=== PATIENT | male | born 1980 | race Caucasian/White ===

== ENCOUNTER 2021-12-20 11:02 | Day surgery (SDC) | payer BC | END 2021-12-20 13:15 | disposition home or self-care (01) | LOC: FASU-ENDO 11:02 | PROVIDERS: ATTEND Internal Medicine Gastroenterology | PROC: 0DB68ZX Excision of Stomach, Via Natural or Artificial Opening Endoscopic, Diagnostic (ICD-10-PCS; 2021-12-20) | PROC: 0DB48ZX Excision of Esophagogastric Junction, Via Natural or Artificial Opening Endoscopic, Diagnostic (ICD-10-PCS; 2021-12-20) | PROC: 0DB98ZX Excision of Duodenum, Via Natural or Artificial Opening Endoscopic, Diagnostic (ICD-10-PCS; principal; 2021-12-20 11:35) | DX: K26.9 Duodenal ulcer, unspecified as acute or chronic, without hemorrhage or perforation (principal); K29.80 Duodenitis without bleeding; K29.50 Unspecified chronic gastritis without bleeding; K20.90 Esophagitis, unspecified without bleeding; R10.13 Epigastric pain | CPT/HCPCS: 88305-TC; 88342-TC ==

== ENCOUNTER 2022-02-21 10:47 | Day surgery (SDC) | payer BC ==
[2022-02-20 12:08] VITALS: BMI 25.0
[2022-02-21 13:01] VITALS: TEMP 97
[2022-02-21 13:09] VITALS: BP 118/70; PULSE 62
== END 2022-02-21 13:11 | disposition home or self-care (01) ==
LOC: FASU-ENDO 10:47
PROVIDERS: ATTEND Internal Medicine Gastroenterology
PROC: 0DB68ZX Excision of Stomach, Via Natural or Artificial Opening Endoscopic, Diagnostic (ICD-10-PCS; principal; 2022-02-21 12:41)
DX: Z13.810 Encounter for screening for upper gastrointestinal disorder (principal); K29.50 Unspecified chronic gastritis without bleeding
CPT/HCPCS: 88305-TC; 88342-TC